=== PATIENT | female | born 1985 | race African-American/Black ===

== ENCOUNTER 2024-07-14 16:21 | Emergency (ER) | payer OTHER ==
[~2024-07-14] VITALS: Ht 162.6 cm; Wt 73.3 kg
[2024-07-14 17:13] LABS: BASO % 0.1 % (0.0-1.0); EOS % 0.5 % (0.0-3.0); HEMATOCRIT 36.4 % (36.0-47.0); HEMOGLOBIN 12.1 g/dl (12.0-15.5); LYMPH % 26.7 % (24.0-44.0); MEAN CORPUSCULAR HEMOGLOBIN 32.1 pg (27.0-33.0); MEAN CORPUSCULAR HGB CONC 33.2 g/dl (32.0-36.5); MEAN CORPUSCULAR VOLUME 96.6 fl (80.0-96.0); MONO # 0.5 10^3/uL (0.0-0.8); NEUTROPHILS # 4.7 10^3/uL (1.5-8.5); NEUTROPHILS % 63.1 % (36.0-66.0); PLATELET COUNT, AUTOMATED 264 10^3/uL (150-450); RED BLOOD COUNT 3.77 10^6/uL (4.00-5.40); WHITE BLOOD COUNT 7.4 10^3/uL (4.0-10.0)
[2024-07-14 17:28] LABS: BLOOD UREA NITROGEN 6 MG/DL (9-23); CALCIUM LEVEL 9.1 MG/DL (8.5-10.1); CARBON DIOXIDE LEVEL 22 MMOL/L (20-31); CHLORIDE LEVEL 106 MMOL/L (98-107); CREATININE FOR GFR 0.53 MG/DL (0.55-1.30); GLOMERULAR FILTRATION RATE > 90.0 (>58); GLUCOSE, FASTING 79 MG/DL (60-100); SODIUM LEVEL 139 MMOL/L (136-145)
[2024-07-14 17:31] LABS: THYROID STIMULATING HORMONE 1.447 uIU/ML (0.55-4.78)
[2024-07-14 19:20] LABS: CK-MB VALUE MASS < 1.0 NG/ML (<3.6)
[2024-07-14 19:24] LABS: CPK CREATINE PHOSPHOKINASE 248 U/L (34-145)
[2024-07-14 20:06] LABS: CK-MB VALUE MASS < 1.0 NG/ML (<3.6)
[2024-07-14 20:10] LABS: CPK CREATINE PHOSPHOKINASE 199 U/L (34-145)
[2024-07-14 20:32] VITALS: BP 112/73; TEMP 97.6; O2SAT 100
== END 2024-07-14 20:38 | disposition home or self-care (01) ==
LOC: EDBD 16:21 → M ED 16:21
DX: R55 Syncope and collapse (principal)

== ENCOUNTER → 2024-09-17 | Outpatient (CLI) | payer OTHER ==
[2024-09-17 13:19] LABS: PLATELET COUNT, AUTOMATED 209 10^3/uL (150-450)
[2024-09-17 13:23] LABS: GLUCOSE CHALLENGE TEST 1 HOUR 101 MG/DL (LESS THAN 140)
[2024-09-17 14:01] LABS: HIV 1&2 SCREEN NEGATIVE (NEGATIVE)
[2024-09-17 14:09] LABS: HEPATITIS C VIRUS ABY INDEX 0.02 INDEX (<0.8)
[2024-09-17 15:17] LABS: Trichomonas vaginalis (AMP) NOT DETECTED (NEGATIVE)
[2024-09-17 15:41] LABS: GC DNA AMPLIFICATION NEGATIVE (NEGATIVE)
== END ==
LOC: M PLALAB 10:21
PROVIDERS: ATTEND Specialist
DX: Z34.82 Encounter for supervision of other normal pregnancy, second trimester (principal)